=== PATIENT | female | born 1960 | race Caucasian/White ===

== ENCOUNTER → 2016-03-17 09:36 | Outpatient (CLI) | payer MEDICAID ==
[2015-10-20 06:17] VITALS: BMI 46.9
[~2016-03-17 09:36] MED LIST: HYDROCODONE-APA1 TAB PO; IBUPROFEN600 MG PO
[2016-03-18 07:28] LABS: IMMUNOGLOBULIN A 168 mg/dL (87-352); IMMUNOGLOBULIN G 1007 mg/dL (700-1600)
[2016-03-18 10:18] LABS: IMMUNOGLOBULIN E 795 IU/mL (0-100)
== END | disposition home or self-care (01) ==
LOC: D.RT 09:36
PROVIDERS: Internal Medicine Pulmonary Disease
DX: J44.9 Chronic obstructive pulmonary disease, unspecified (principal)

== ENCOUNTER → 2016-04-06 19:42 | Outpatient (CLI) | payer BC ==
[2015-10-20 06:17] VITALS: BMI 46.9
== END | disposition home or self-care (01) ==
LOC: D.SLEEP 19:42
DX: G47.33 Obstructive sleep apnea (adult) (pediatric) (principal)

== ENCOUNTER → 2016-05-18 19:34 | Outpatient (CLI) | payer MEDICAID ==
[2015-10-20 06:17] VITALS: BMI 46.9
== END | disposition home or self-care (01) ==
LOC: D.SLEEP 05-04 20:00
DX: G47.33 Obstructive sleep apnea (adult) (pediatric) (principal)

== ENCOUNTER → 2016-06-24 10:20 | Outpatient (CLI) | payer MEDICAID ==
[2015-10-20 06:17] VITALS: BMI 46.9
== END | disposition home or self-care (01) ==
LOC: D.CT 10:20
DX: J45.909 Unspecified asthma, uncomplicated (principal)

== ENCOUNTER → 2016-09-07 12:17 | Outpatient (CLI) | payer MEDICAID ==
[2015-10-20 06:17] VITALS: BMI 46.9
== END | disposition home or self-care (01) ==
LOC: D.MAMMO 09:00
DX: Z85.3 Personal history of malignant neoplasm of breast (principal); Z12.31 Encounter for screening mammogram for malignant neoplasm of breast

== ENCOUNTER → 2016-09-29 09:27 | Outpatient (CLI) | payer MEDICAID ==
[2015-10-20 06:17] VITALS: BMI 46.9
== END | disposition home or self-care (01) ==
LOC: D.ECHO 09:27
DX: I38 Endocarditis, valve unspecified (principal)

== ENCOUNTER 2016-11-17 05:20 | Day surgery (SDC) | payer MEDICAID ==
[2016-11-16 12:44] LABS: BASOPHILS 0.2 % (0-2); EOSINOPHILS 1.8 % (0-7); HEMATOCRIT 36.1 % (36.0-48.0); HEMOGLOBIN 11.7 g/dL (12-16); IMMATURE GRANULOCYTES 0.5 % (0-5); LYMPHOCYTES 22.7 % (15-50); MCH 26.3 pg (26.0-34.0); MCHC 32.4 g/dL (31.0-37.0); MCV 81.1 fL (80.0-100.0); MEAN PLATELET VOLUME 9.2 fL (7.4-10.4); MONOCYTES 3.5 % (2-11); NEUTROPHILS 71.3 % (40-80); PLATELET COUNT 323 10x3/uL (130-400); RBC 4.45 10x6/uL (4.00-5.40); RDW 16.8 % (11.5-14.5); WBC 8.5 10x3/uL (4.8-10.8)
[2016-11-16 13:02] LABS: APTT 35.1 SECONDS (22.8-39.4); INR 0.97 (0.85-1.17); PROTIME 12.8 SECONDS (11.6-15.0)
[2016-11-16 13:11] LABS: ANION GAP 12.9 mmol/L (8-16); CALCIUM 9.5 mg/dL (8.5-10.1); CREATININE - SERUM 0.9 mg/dL (0.6-1.3); POTASSIUM - SERUM 3.9 mmol/L (3.5-5.1)
[~2016-11-17] VITALS: Ht 154.9 cm; Wt 116.1 kg
--- NOTE | ~2016-11-17 | OP ---
PATIENT NAME: VANE GUTIERREZ MEDICAL RECORD: [id number] :58 LOCATION:D.OPS ADMISSION DATE: SURGEON: HIREN LUKE MD DATE OF OPERATION: 11/17/2016 PREOPERATIVE DIAGNOSES: 1. Right breast erythema. 2. History of invasive ductal carcinoma of the right breast, status post lumpectomy. 3. Chronic obstructive pulmonary disease. 4. Asthma. 5. Gastroesophageal reflux disease. 6. Hypertension. 7. Tobacco dependence syndrome. 8. Hyperlipidemia. 9. Obstructive sleep apnea. 10. Morbid obesity. POSTOPERATIVE DIAGNOSES: 1. Right breast erythema. 2. History of invasive ductal carcinoma of the right breast, status post lumpectomy. 3. Chronic obstructive pulmonary disease. 4. Asthma. 5. Gastroesophageal reflux disease. 6. Hypertension. 7. Tobacco dependence syndrome. 8. Hyperlipidemia. 9. Obstructive sleep apnea. 10. Morbid obesity. PROCEDURES: 1. Incision and debridement of right breast cyst (right upper outer quadrant). 2. Excisional skin biopsy of the right breast. SURGEON: Hiren Luke MD REPORT OF PROCEDURE: The patient's right breast was prepped and draped in sterile fashion. A skin incision was made at the nipple areolar complex edge at about the 9 o'clock position and a core of tissue was removed. This tissue was sent off for permanent specimen. Any bleeding from the source was treated with electrocautery. We then used ultrasound guidance to inspect the remainder of the breast and was able to find that patient had a large cystic cavity in the right upper outer quadrant at the site of the previous lumpectomy. A skin incision was made overlying this and we entered the pocket with some murky-appearing fluid, but no richard purulence. The fluid had no odor. The fluid was kind of thin, white color. The cultures were taken times 2. There was then a cystic core edge to this and this cystic tissue was removed until there was just a layer of normal fatty tissue appearing. The cystic tissue was sent off for permanent specimen. We then inspected the area and any bleeding was treated with electrocautery. We then irrigated out the wound thoroughly with normal saline. A 15-Scottish Ortiz drain was inserted into this space and sutured into place with a 2-0 Prolene. The subcutaneous tissues were all reapproximated with interrupted 3-0 Vicryl and the skin incisions were closed with subcutaneous 5-0 Monocryl. A total of 10 mL of 0.25% Marcaine was infused OPERATIVE REPORT [id number] VANE GUTIERREZ into the surrounding tissues and the wound was dressed appropriately. COMPLICATIONS: None. CONDITION: Stable. ANESTHESIA: General endotracheal and local. BLOOD LOSS: 30 mL. TRANSINT:[id number] Voice Confirmation ID: [id number] DOCUMENT ID: [id number] HIREN LUKE MD CC: DOMENICA GAMEZ DO [id number] DICTATION DATE: 11/17/16 1033 DWARF TREE GROWER: 11/17/16 1142 [facility] [address] [place] [address]
[~2016-11-17 05:20] MED LIST changes: +ADVAIR 250/501 DISK INH; +ANASTROZOLE1 MG PO; +FLUTICASONE PRO16 GM NASAL; +IPRAT-ALBUT 0.5-3 ML UPD; +LIPITOR20 MG PO; +NORCO 7.5/325 T1 TA1 PO; +OMEPRAZOLE40 MG PO; +SINGULAIR10 MG PO; +SPIRIVA18 MCG INH
[2016-11-17 08:10] VITALS: BP 126/67; Ht 154.9 cm; Wt 116.1 kg
[2016-11-17] MEDS ORDERED: NORCO 7.5/325 T1 TA1 PO (10:26)
== END 2016-11-17 12:25 | disposition home or self-care (01) ==
LOC: D.OPS 05:20
PROVIDERS: Surgery
DX: N61.1 Abscess of the breast and nipple (principal); C50.411 Malignant neoplasm of upper-outer quadrant of right female breast; J44.9 Chronic obstructive pulmonary disease, unspecified; K21.9 Gastro-esophageal reflux disease without esophagitis; I10 Essential (primary) hypertension; E78.5 Hyperlipidemia, unspecified; G47.33 Obstructive sleep apnea (adult) (pediatric); F17.200 Nicotine dependence, unspecified, uncomplicated; Z01.812 Encounter for preprocedural laboratory examination

== ENCOUNTER 2016-12-26 21:34 | Emergency (ER) | payer MEDICAID ==
[2016-11-17 08:10] VITALS: BMI 48.4
[2016-12-26 23:27] LABS: BASOPHILS 0.2 % (0-2); EOSINOPHILS 1.8 % (0-7); HEMATOCRIT 36.4 % (36.0-48.0); HEMOGLOBIN 11.7 g/dL (12-16); IMMATURE GRANULOCYTES 0.2 % (0-5); MCH 26.5 pg (26.0-34.0); MCHC 32.1 g/dL (31.0-37.0); MCV 82.5 fL (80.0-100.0); MEAN PLATELET VOLUME 9.4 fL (7.4-10.4); MONOCYTES 3.7 % (2-11); NEUTROPHILS 67.1 % (40-80); PLATELET COUNT 318 10x3/uL (130-400); RBC 4.41 10x6/uL (4.00-5.40); WBC 8.5 10x3/uL (4.8-10.8)
[2016-12-26 23:50] LABS: ALBUMIN 3.7 g/dL (3.4-5.0); BILIRUBIN - TOTAL 0.4 mg/dL (0.2-1.3); CALCIUM 9.6 mg/dL (8.5-10.1); CARBON DIOXIDE 28.7 mmol/L (21.0-32.0); CREATININE - SERUM 0.9 mg/dL (0.6-1.3); POTASSIUM - SERUM 3.7 mmol/L (3.5-5.1); PROTEIN - SERUM 8.1 g/dL (6.4-8.2)
== END 2016-12-27 00:32 | disposition home or self-care (01) ==
LOC: D.ER 21:34
PROVIDERS: Physician Assistant
DX: K59.00 Constipation, unspecified (principal); Z85.3 Personal history of malignant neoplasm of breast; J44.9 Chronic obstructive pulmonary disease, unspecified; K21.9 Gastro-esophageal reflux disease without esophagitis

== ENCOUNTER 2017-02-06 05:48 | Day surgery (SDC) | payer MEDICAID ==
[~2017-02-06] VITALS: Ht 152.4 cm; Wt 110.5 kg
[2017-02-06 06:23] VITALS: BP 133/71; Ht 152.4 cm; Wt 110.5 kg
[2017-02-06 06:56] LABS: HEMATOCRIT 35.2 % (36.0-48.0); HEMOGLOBIN 11.3 g/dL (12-16); MCH 25.9 pg (26.0-34.0); MCHC 32.1 g/dL (31.0-37.0); MCV 80.5 fL (80.0-100.0); MEAN PLATELET VOLUME 9.3 fL (7.4-10.4); RBC 4.37 10x6/uL (4.00-5.40); RDW 16.8 % (11.5-14.5); WBC 6.1 10x3/uL (4.8-10.8)
[2017-02-06 07:12] LABS: ANION GAP 13.5 mmol/L (8-16); CARBON DIOXIDE 28.4 mmol/L (21.0-32.0); CREATININE - SERUM 0.9 mg/dL (0.6-1.3); POTASSIUM - SERUM 3.9 mmol/L (3.5-5.1)
--- NOTE | 2017-02-06 08:45 | NUR ---
PT REC'D TO ROOM VIA STRETCHER. AWAKE, ALERT, ORIENTED.
--- NOTE | 2017-02-06 08:55 | NUR ---
FULL LIQ DIET PROVIDED AND TOLERATED.
--- NOTE | 2017-02-06 09:11 | NUR ---
IV D/C'D CATH INTACT.
--- NOTE | 2017-02-06 09:12 | NUR ---
PT UP TO BR TO VOID.
--- NOTE | 2017-02-06 09:25 | NUR ---
D/C INSTRUCTIONS EXPLAINED TO PT. VOICED UNDERSTANDING. COPIES OF ALL GIVEN. D/C'D HOME VIA W/C TO PRIVATE CAR.
--- NOTE | 2017-02-09 11:51 | OP ---
PATIENT NAME: VANE GUTIERREZ MEDICAL RECORD: [id number] :58 LOCATION:[facility] ADMISSION DATE: SURGEON: CHRISTOPHER VALIENTE DO DATE OF OPERATION: 02/06/2017 PROCEDURE: EGD with biopsies. INDICATIONS FOR PROCEDURE: Heartburn, nausea, gas, and bloating. SCOPE: Olympus video gastroscope. MEDICATIONS: Propofol 200 mg IV per anesthesia. ESTIMATED BLOOD LOSS: Minimal. COMPLICATIONS: None. FINDINGS: Informed consent was given. The patient was made comfortable with the above medication. After reaching an adequate level of sedation by slow IV push, the patient was placed on her left side. The endoscope was then advanced under direct visualization through the mouth to the second portion of the duodenum. The upper, middle, and lower thirds of the esophagus appeared normal. At the GE junction, there was mild evidence of reflux esophagitis. The endoscope was advanced beyond the GE junction into the stomach and retroflexed to view the cardia, where a small sliding hiatal hernia was present. The fundus, body of the stomach, antrum, and prepyloric region all displayed some edema, consistent with possible gastritis. Random biopsies were taken to submit for histology and to rule out H. pylori. The endoscope was advanced beyond the pylorus into the duodenum. The entire exam and duodenum appeared normal. The endoscope was withdrawn from the patient. The patient tolerated the procedure well and there were no complications. IMPRESSION: 1. LA class A reflux-induced esophagitis. 2. Small sliding hiatal hernia. 3. Edema and congestion of the stomach consistent with possible gastritis, biopsies pending. PLAN AND RECOMMENDATIONS: 1. Discharge home when recovery parameters are met. 2. GERD diet and reflux precautions. 3. Gastric emptying study regarding nausea, gas, and bloating. 4. Continue omeprazole 40 mg daily for symptoms. May reduce this to 20 mg daily as tolerated by symptomatology. 5. Consider surgical consultation if gastric emptying study is negative and the patient continues to experience severe regurgitation. 6. Also consider a barium esophagram to evaluate severity of reflux and regurgitation. TRANSINT:[id number] Voice Confirmation ID: [id number] DOCUMENT ID: [id number] OPERATIVE REPORT [id number] VANE GUTIERREZ CHRISTOPHER VALIENTE DO at 5425 CC: [id number] DICTATION DATE: 02/06/17 0834 AUDIO VISUAL SPECIALIST: 02/06/17 1212 [facility] 02/06/17 [facility] [address] [place] [address]
== END 2017-02-06 09:25 | disposition home or self-care (01) ==
LOC: D.OPS 05:48
PROVIDERS: Anesthesiology
DX: R12 Heartburn (principal); R11.0 Nausea; R14.3 Flatulence; K44.9 Diaphragmatic hernia without obstruction or gangrene; Z01.812 Encounter for preprocedural laboratory examination; J45.909 Unspecified asthma, uncomplicated; I10 Essential (primary) hypertension; E11.9 Type 2 diabetes mellitus without complications; G47.30 Sleep apnea, unspecified

== ENCOUNTER → 2017-02-16 08:41 | Outpatient (CLI) | payer MEDICAID ==
[2017-02-06 06:23] VITALS: BMI 47.5
== END | disposition home or self-care (01) ==
LOC: D.NM 08:41
DX: R11.0 Nausea (principal); R14.0 Abdominal distension (gaseous)

== ENCOUNTER → 2017-03-08 19:29 | Outpatient (CLI) | payer MEDICAID ==
[2017-02-06 06:23] VITALS: BMI 47.5
== END | disposition home or self-care (01) ==
LOC: D.LABREF 19:29
DX: N64.89 Other specified disorders of breast (principal); Z85.3 Personal history of malignant neoplasm of breast

== ENCOUNTER 2017-03-13 06:52 | Day surgery (SDC) | payer MEDICAID ==
[~2017-03-13] VITALS: Ht 154.9 cm; Wt 108.4 kg
--- NOTE | ~2017-03-13 | OP ---
PATIENT NAME: VANE GUTIERREZ MEDICAL RECORD: [id number] :58 LOCATION:DNickOPS ADMISSION DATE: SURGEON: CHRISTOPHER VALIENTE DO DATE OF OPERATION: 03/13/2017 PROCEDURE: Colonoscopy with hot forceps polypectomy. INDICATION FOR PROCEDURE Colorectal cancer screening. SCOPE: Olympus video pediatric colonoscope. MEDICATIONS: Propofol 400 mg IV per anesthesia. WITHDRAWAL TIME: 12 minutes. ESTIMATED BLOOD LOSS: Minimal. COMPLICATIONS: None. FINDINGS: Informed consent was given. The patient was made comfortable with the above medication. After reaching an adequate level of sedation by slow IV push, the patient was placed on her left side. A digital rectal examination was performed which revealed some large external hemorrhoids, which were not bleeding. The endoscope was then advanced under direct visualization through the rectum to the cecum with visualization of the appendiceal orifice and the ileocecal valve. The scope was slowly withdrawn and mucosa was carefully examined. There was evidence of mild diverticulosis involving sigmoid and distal descending colon. This consisted of a few small mouth diverticula without evidence of diverticulitis. There were 4 polyps visualized on today's examination. They were all in the descending colon. They were all benign appearing, sessile, and ranged in size from 3 mm to 5 mm in diameter. They were all removed in one piece using hot forceps. Retroflexion was performed in the rectum with visualization of grade III hemorrhoids with no active bleeding. The endoscope was then withdrawn from the patient. The patient tolerated the procedure well and there were no complications. IMPRESSION: 1. Four benign-appearing sessile polyps located in the descending colon, all removed using hot forceps. 2. Mild diverticulosis of distal descending and sigmoid colon. 3. Internal and external hemorrhoids without active bleeding. PLAN AND RECOMMENDATIONS: 1. Discharge home when recovery parameters are met. 2. High-fiber diet. 3. Supplement diet with Metamucil or other psyllium husk fiber two tablespoons daily to facilitate regular bowel movements. 4. Continue current medications. 5. Recall colonoscopy in 3 years for surveillance of personal history of polyps. TRANSINT:[id number] Voice Confirmation ID: [id number] DOCUMENT ID: [id number] OPERATIVE REPORT [id number] VANE GUTIERREZ CHRISTOPHER VALIENTE DO at 1616 CC: [id number] DICTATION DATE: 03/13/17 0944 SPINNER HYDRAULIC: 03/13/17 1413 [facility] 03/13/17 [place] [id number] [place] [address]
[2017-03-13 08:24] LABS: HEMATOCRIT 34.7 % (36.0-48.0); HEMOGLOBIN 11.1 g/dL (12-16); MCH 25.5 pg (26.0-34.0); MCV 79.8 fL (80.0-100.0); MEAN PLATELET VOLUME 9.3 fL (7.4-10.4); RBC 4.35 10x6/uL (4.00-5.40); RDW 16.7 % (11.5-14.5); WBC 6.7 10x3/uL (4.8-10.8)
[2017-03-13 08:27] VITALS: BP 135/62; Ht 154.9 cm; Wt 108.4 kg
[2017-03-13 08:32] LABS: CALC OSMOLALITY 278 mosm/kg (275-300); CALCIUM 9.6 mg/dL (8.5-10.1); CARBON DIOXIDE 30.2 mmol/L (21.0-32.0); CHLORIDE - SERUM 101 mmol/L (98-107); CREATININE - SERUM 0.8 mg/dL (0.6-1.3); GLUCOSE 109 mg/dL (74-106); POTASSIUM - SERUM 3.5 mmol/L (3.5-5.1); SODIUM 141 mmol/L (136-145); UREA NITROGEN 3 mg/dL (7-18); eGFR NON AFRICAN AMERICAN 78 mL/min (90-120)
== END 2017-03-13 10:35 | disposition home or self-care (01) ==
LOC: D.OPS 06:52
PROVIDERS: Anesthesiology
DX: K59.00 Constipation, unspecified (principal); R12 Heartburn; R14.3 Flatulence; R11.0 Nausea; K63.5 Polyp of colon; K64.4 Residual hemorrhoidal skin tags; K64.8 Other hemorrhoids; K57.30 Diverticulosis of large intestine without perforation or abscess without bleeding; Z01.812 Encounter for preprocedural laboratory examination; F17.200 Nicotine dependence, unspecified, uncomplicated; J45.909 Unspecified asthma, uncomplicated; E11.9 Type 2 diabetes mellitus without complications; J44.9 Chronic obstructive pulmonary disease, unspecified; G47.30 Sleep apnea, unspecified; K21.9 Gastro-esophageal reflux disease without esophagitis

== ENCOUNTER → 2017-04-12 12:47 | Outpatient (CLI) | payer MEDICAID ==
[2017-03-13 08:27] VITALS: BMI 45.1
== END | disposition home or self-care (01) ==
LOC: D.RT 12:47
DX: J44.9 Chronic obstructive pulmonary disease, unspecified (principal)

== ENCOUNTER 2017-08-14 11:18 | Outpatient (CLI) | payer MEDICAID ==
[~2017-08-14] VITALS: Ht 154.9 cm; Wt 104.5 kg
--- NOTE | ~2017-08-14 | HEMODYNAMI ---
PATIENT:VANE GUTIERREZ MEDICAL RECORD: [id number] : 58 LOCATION:[facility]ELIT[facility] ADMISSION DATE: 08/14/17 Generatedon:08/14/201713:52 Patient name: VANE GUTIERREZ Patient #: [id number] SSN: : 1960 Date of study: 08/14/2017 Page: Of Hemodynamic Procedure Report Patient Data Patient Demographics Procedure consent was obtained First Name: VANE Gender: Female Last Name: MATT : 1960 [facility] Initial: KELLY Age: 56 year(s) Patient #: [id number] Race: Unknown Additional ID: [id number] Contact details [address]: [address] [place] [address] ROAD State: [place] City: [facility] Zip code: [address] Past Medical History Allergies Allergen Reaction Date Comments Reported Demerol 08/14/2017 Morphine 08/14/2017 Other allergy 08/14/2017 Doxycycline, Meloxicam, Keflex, Tramadol Admission Admission Data Admission Date: 08/14/2017 Admission Time: 11:18 Procedure Procedure Types Cath Procedure Diagnostic Procedure LHC LHC w/Coronaries Sedation Charges Moderate Sedation up to 15 minutes Procedure Description Procedure Date Procedure Date: 08/14/2017 Procedure Start Time: 13:41 Procedure End Time: 13:52 Procedure Staff Name Function Roberto Moreno MD Performing Physician Vandana Dave RT Monitor Vicky Oliveira RT Scrub Jose Alfredo Easton RN Nurse Procedure Data Cath Procedure Fluoroscopy Diagnostic fluoroscopy Total fluoroscopy Time: 1.2 time: 1.2 min min Diagnostic fluoroscopy Total fluoroscopy dose: 595 dose: 595 mGy mGy Contrast Material Contrast Material Type Amount (ml) Isovue 370 56 Entry Location Entry Primary Successful Side Size Upsize Upsize Entry Closure Succes sful Closure Location (Fr) 1 (Fr) 2 (Fr) Remarks Device Remarks Femoral Right 5 Fr Exoseal artery Estimated blood loss: 5 ml Diagnostic catheters Device Type Used For End Catheter Placement MULTIPACK JL 4.0 5Fr Left Coronary catheter Angiography MULTIPACK 3DRC 5Fr Right Coronary catheter Angiography MULTIPACK Pigtail 5 Fr LV Angiography catheter Procedure Complications No complications Procedure Medications Medication Administration Route Dosage Oxygen etCO2 Nasal cannula 2 l/min Heparin Flush Bag added to field 2 bags (1000units/500ml NS) 0.9% NaCl I.V. 100 ml/hr Fentanyl I.V. 50 mcg Versed I.V. 1 mg Fentanyl I.V. 50 mcg Versed I.V. 1 mg Fentanyl I.V. 50 mcg Fentanyl I.V. 50 mcg Hemodynamics Rest Heart Rate: 77 (bpm) Pressure Samples Time Site Value (mmHg) Purpose Heart Use Rate(bpm) 13:47 LV 136/19,20 EDP 90 Gradients Valve Time Site Site Mean SEP/DFP Peak To Heart Use 1 2 (mmHg) (sec/min) Peak Rate (mmHg) (bpm) Aortic 13:48 LV AO 94 Snapshots Pre Cath Intra NCS Post Cath Vital Signs Time Heart Resp SPO2 etCO2 NIBP (mmHg) Rhythm Pain Sedation Rate (ipm) (%) (mmHg) Status Level (bpm) 13:25:22 81 16 96 0 136/64(106) NSR 0 (11) 10(A) , No pain 13:34:22 81 17 98 0 149/72(104) NSR 0 (11) 10(A) , No pain 13:39:13 83 16 100 10.5 135/87(105) NSR 0 (11) 9(A) , No pain 13:44:06 86 16 94 0 131/62(97) NSR 0 (11) 9(A) , No pain 13:48:59 96 18 95 10.5 122/67(84) NSR 0 (11) 9(A) , No pain Medications Time Medication Route Dose Verified Delivered Reason Notes Effe ctiveness by by 13:23:16 Oxygen etCO2 2 Roberto Veliz Per Nasal l/min St Josue Easton RN physician cannula 13:23:24 Heparin Flush added 2 Roberto Veliz used for Bag to bags St Josue Easton RN procedure (1000units/500ml field NS) 13:23:33 0.9% NaCl I.V. 100 Roberto Veliz Per ml/hr [facility] Josue Easton RN physician 13:30:40 Fentanyl I.V. 50 Roberto Veliz for mcg [facility] Josue Easton RN sedation 13:30:48 Versed I.V. 1 mg Roberto Veliz for [facility] Josue Easton RN sedation 13:34:34 Fentanyl I.V. 50 Roberto Veliz for [facility]ue Easton RN sedation 13:34:37 Versed I.V. 1 mg Roberto Veliz for [facility] Josue Easton RN sedation 13:44:56 Fentanyl I.V. 50 Roberto Veliz for [facility]ue Easton RN sedation 13:46:15 Fentanyl I.V. 50 Roberto Veliz for [facility]ue Easton RN sedation Procedure Log Time Note 13::28 Vicky Oliveira RT(R) sent for patient. Start room use. ::28 Time tracking: Regular hours (M-F 7:00 - 5:00) 13:07:32 Plan of Care:Hemodynamics will remain stable., Cardiac rhythm will remain stable., Comfort level will be maintained., Respiratory function will remain adequate., Patient/ family verbilizes understanding of procedure., Procedure tolerated without complication., Recovers from procedure without complications.. 13:23:16 Oxygen 2 l/min etCO2 Nasal cannula was administered by Jose Alfredo Easton RN; Per physician; 13:23:24 Heparin Flush Bag (1000units/500ml NS) 2 bags added to field was administered by Jose Alfredo Easton RN; used for procedure; 13:23:33 0.9% NaCl 100 ml/hr I.V. was administered by Jose Alfredo Easton RN; Per physician; 13:24:03 Patient received from Pre/Post Procedure Room to [facility] 1 Alert and oriented. Tansferred to table in Supine position. 13:24:04 Warm blankets applied, and zeeshan hugger turned on for patient comfort. 13:24:05 Correct patient and procedure confirmed by team. 13:24:06 Signed procedure consent form obtained from patient. 13:24:06 ECG and BP/O2 sat monitors applied to patient. 13:24:07 Vital chart was started 13:24:08 Full Disclosure recording started 13:24:10 Rhythm: sinus rhythm 13:27:26 H&P Date Dictated: 08/02/2017 Within 30 days and on chart., H&P Addendum completed by physician on day of procedure. (MUST COMPLETE FOR ALL OUTPATIENTS). 13:27:28 Pre-procedure instructions explained to patient. 13:27:28 Pre-op teaching completed and patient verbalized understanding. 13:27:30 Family in patients room. 13:27:32 Patient NPO since Midnight. 13:27:43 Patient allergic to Demerol 13:27:48 Patient allergic to Morphine 13:28:35 Patient allergic to Other allergyDoxycycline, Meloxicam, Keflex, Tramadol 13:28:37 Is the patient allergic to Iodine/contrast media? No. 13:28:39 Is patient on blood thinner?No 13:28:40 Patient diabetic? No. 13:28:43 Previous problem with sedation/anesthesia? No ? 13:28:44 Snore? Yes 13:28:45 Sleep apnea? Yes 13:28:46 Deviated septum? No 13:28:47 Opens mouth fully? Yes 13:28:47 Sticks out tongue? Yes 13:28:56 Airway obstruction? Yes COPD 13:29:09 Dentures? No . 13:29:12 Pre procedure: right dorsailis pedis pulse 2+ Normal; easily identifiable; not easily obliterated 13:29:14 Modified Oliver's test Ulnar > 7 seconds. 13:29:16 Patient pain scale 0/10 ?. 13:29:21 IV patent on arrival in left hand with 0.9% NaCl at [facility]. 13:29:23 Lab results completed and on chart. 13:29:35 Right groin area was prepped with chlora-prep and draped in sterile fashion 13:29:35 Alarms reviewed by R. N. 13:29:36 Sharps counted by scrub and verified by R.N. 13:29:39 Use device set Femoral Dx 13:29:39 ACIST Syringe (67435) opened to sterile field. 13:29:40 Bag Decanter (2002S) opened to sterile field. 13:29:41 Medline Cath Pack ([id number]) opened to sterile field. 13:29:41 DIAGNOSTIC WIRE .035 260cm J wire (514516) opened to sterile field. 13:29:45 ACIST Hand Control (79243) opened to sterile field. 13:29:45 ACIST Manifold (07405) opened to sterile field. 13:29:46 DIAGNOSTIC Multipack 5Fr catheter set (RR7102) opened to sterile field. 13:29:47 Tegaderm 4 x 4 (1626W) opened to sterile field. 13:29:47 PERCUTANEOUS ENTRY 19GA needle opened to sterile field. 13:29:48 SHEATH Prelude 5Fr 0.035 (COD-5A-64-035) opened to sterile field. 13:29:58 Final Timeout: patient, procedure, and site verified with staff and physician. All members of the team are in agreement. 13:29:59 Right groin site verified by team. 13:30:02 Physical assessment completed. ASA score P 2 - A patient with mild systemic disease as per Roberto Moreno MD. 13:30:05 Sedation plan: IV Moderate Sedation Medication:Versed, Fentanyl 13:30:40 Fentanyl 50 mcg I.V. was administered by Jose Alfredo Easton RN; for sedation; 13:30:48 Versed 1 mg I.V. was administered by Jose Alfredo Easton RN; for sedation; 13:33:10 Vital chart was stopped 13:33:11 Vital chart was started 13:34:34 Fentanyl 50 mcg I.V. was administered by Jose Alfredo Easton RN; for sedation; 13:34:37 Versed 1 mg I.V. was administered by Jose Alfredo Easton RN; for sedation; 13:36:30 Baseline sample Acquired. 13:40:56 Procedure started. 13:41:15 Local anesthetic to right femoral artery with Lidocaine 1% by Roberto Moreno MD.INITIAL ACCESS ONLY 13:42:11 A 5 Fr sheath was inserted into the Right Femoral artery 13:43:38 A MULTIPACK JL 4.0 5Fr catheter was advanced over the wire and used for Left Coronary Angiography. 13:44:53 Catheter removed. 13:44:56 Fentanyl 50 mcg I.V. was administered by Jose Alfredo Easton RN; for sedation; 13:45:01 A MULTIPACK 3DRC 5Fr catheter was advanced over the wire and used for Right Coronary Angiography. 13:46:05 Catheter removed. 13:46:15 Fentanyl 50 mcg I.V. was administered by Jose Alfredo Easton RN; for sedation; 13:46:23 A MULTIPACK Pigtail 5 Fr catheter was advanced over the wire and used for LV Angiography. 13:46:28 EXOSEAL 5Fr (EX500) opened to sterile field. 13:47:43 LV gram done using FOSTER 13:47:45 LV hemodynamics recorded. 13:47:49 EF : 50 % 13:47:52 Injector settings: Ml/sec: 10, Volume: 20, 13:48:26 Catheter removed. 13:48:36 Sheath removed intact; hemostasis achieved with Exoseal to the Right Femoral artery. 13:48:37 Procedure ended.(Physican Out) 13:48:41 Fluoroscopy time 01.20 minutes. 13:48:44 Fluoroscopy dose: 595 mGy 13:48:44 Flurop Dose total: 595 13:48:48 Contrast amount:Isovue 370 56ml. 13:48:49 Sharps counted by scrub and verified by R.N. 13:48:51 Insertion/operative site no bleeding no hematoma. 13:48:54 Post-op/insertion site Right Femoral artery dressed using a 4 x 4 and Tegaderm. 13:48:56 Post right femoral artery:stable, clean and dry 13:49:01 Post-procedure physical assessment completed. ASA score P 2 - A patient with mild systemic disease as per Roberto Moreno MD. 13:49:03 Post procedure rhythm: unchanged. 13:49:06 Estimated blood loss: 5 ml 13:49:08 Post procedure instruction explained to patient.Patient verbalizes understanding. 13:49:08 Patient needs reinforcement of post procedure teaching. 13:50:51 Procedure type changed to Cath procedure, Diagnostic procedure, LHC, LHC w/Coronaries, Sedation Charges, Moderate Sedation up to 15 minutes 13:50:57 Procedure Complication : No complications 13:51:01 See physician's report for complete and final results. 13:51:18 Procedure and supply charges have been captured, reviewed, submitted and are correct. 13:52:24 Report given to Pre/Post Procedure Room. 13:52:27 Patient transfered to Pre/Post Procedure Room with Stretcher. 13:52:36 Procedure ended. 13:52:36 Full Disclosure recording stopped 13:52:39 End room use (Document Last) 13:52:51 Vital chart was stopped Device Usage Item Name Manufacture Quantity Catalog Number Hospital Part Current M inimal Lot# / Charge Number Stock Stock Serial# Code ACIST Syringe Acist 1 20814 993807 890345 515709 2 0 (85562) [employer] Bag Decanter Microtek 1 934634 17381 352233 5 () Medical Inc. Medline Cath Cardinal 1 [id number] 406911 76644 608692 5 [facility] Pretty in my Pocket (PRIMP) ([id number]) DIAGNOSTIC WIRE [facility] 1 630597 277974 940554 555677 3 0 .035 260cm J wire (052078) ACIST Hand Acist 1 55935 705538 458062 374827 5 Control (79176) Medical Systems Inc ACIST Manifold Acist 1 11584 210805 586378 767086 5 (13061) [employer] Inc DIAGNOSTIC Cardinal 1 [id number] 052034 74022 881710 3 0 Multipack 5Fr Health catheter set (NM4045) Tegaderm 4 x 4 3M 1 1626W 728998 273390 532870 5 (1626W) PERCUTANEOUS Cook Medical 1 Q09374 141902 735151 5 ENTRY 19GA needle SHEATH Prelude Merit 1 LEC-9Q-87-035 722308 857476 869045 5 5Fr 0.035 Medical (HRI-4N-09-035) MULTIPACK JL Cardinal 1 371870 5 4.0 5Fr Health catheter MULTIPACK 3DRC Cardinal 1 889689 5 5Fr catheter Health MULTIPACK Cardinal 1 806837 5 Pigtail 5 Fr Health catheter EXOSEAL 5Fr Cardinal 1 EX500 066404 903664 171439 1 0 (EX500) Health Signature Audit [place] Stage Time Signature Unsigned Intra-Procedure 08/14/2017 Vandana 1:52:49 PM Counts RT(R) Signatures Monitor : Vandana Signature : Counts RT Date : Time : [address] [address]
--- NOTE | ~2017-08-14 | OP ---
PATIENT NAME: VANE GUTIERREZ MEDICAL RECORD: [id number] :58 LOCATION:D.CAT ADMISSION DATE: SURGEON: SYLWIA KHALIL MD DATE OF OPERATION: 08/14/2017 PROCEDURE: Left heart catheterization, selective coronary angiography, right femoral artery approach. CATHETERS: A 5-Frisian sheath, 5/4 left and right Feng, 5/4 pig. The procedure was well tolerated. The patient returned to the freire and sheath removed. ExoSeal device placed. FINDINGS: Left ventriculography in 30-degree FOSTER view: Normal wall motion, normal systolic function. CORONARY ANATOMY: LEFT MAIN: Left main is free of disease. LAD: Free of disease in the diagonal system. CIRCUMFLEX: Free of disease in the marginal system. RIGHT CORONARY ARTERY: Dominant artery, gives rise to PDA, free of disease. IMPRESSION: Normal systolic function, normal coronary anatomy: TRANSINT:[id number] Voice Confirmation ID: [id number] DOCUMENT ID: [id number] SYLWIA KHALIL MD at 0849 CC: [id number] DICTATION DATE: 08/14/17 1356 LIGHTHOUSE KEEPER: 08/14/17 1615 DEP CLI 08/14/17 [facility] [address] [place] [address]
[2017-08-14] MEDS ORDERED: BUSPAR5 MG PO (11:55)
[2017-08-14 12:05] VITALS: BP 150/64; Ht 154.9 cm; Wt 104.5 kg
[2017-08-14 12:21] LABS: BASOPHILS 0.2 % (0-2); EOSINOPHILS 2.9 % (0-7); HEMATOCRIT 35.5 % (36.0-48.0); HEMOGLOBIN 11.8 g/dL (12-16); IMMATURE GRANULOCYTES 0.1 % (0-5); LYMPHOCYTES 24.8 % (15-50); MCH 26.6 pg (26.0-34.0); MCHC 33.2 g/dL (31.0-37.0); MEAN PLATELET VOLUME 9.5 fL (7.4-10.4); MONOCYTES 3.4 % (2-11); NEUTROPHILS 68.6 % (40-80); PLATELET COUNT 272 10x3/uL (130-400); RBC 4.44 10x6/uL (4.00-5.40); WBC 8.4 10x3/uL (4.8-10.8)
[2017-08-14 12:30] LABS: ANION GAP 15.5 mmol/L (8-16); CALCIUM 9.5 mg/dL (8.5-10.1); CARBON DIOXIDE 26.3 mmol/L (21.0-32.0); CREATININE - SERUM 0.9 mg/dL (0.6-1.3); POTASSIUM - SERUM 3.8 mmol/L (3.5-5.1)
== END 2017-08-14 16:00 | disposition home or self-care (01) ==
LOC: D.CATH 11:18
PROVIDERS: Internal Medicine Interventional Cardiology
DX: R94.39 Abnormal result of other cardiovascular function study (principal); Z01.812 Encounter for preprocedural laboratory examination

== ENCOUNTER → 2017-09-01 10:23 | Outpatient (CLI) | payer MEDICAID ==
[2017-08-14 12:05] VITALS: BMI 43.5
[~2017-09-01 10:23] MED LIST changes: +BUSPAR5 MG PO
== END | disposition home or self-care (01) ==
LOC: D.RAD 10:23
DX: J98.11 Atelectasis (principal)

== ENCOUNTER 2017-09-08 18:00 | Outpatient (CLI) | payer MEDICAID ==
[2017-08-14 12:05] VITALS: BMI 43.5
== END 2017-09-08 23:59 | disposition home or self-care (01) ==
LOC: D.MAMMO 18:00
DX: Z12.31 Encounter for screening mammogram for malignant neoplasm of breast (principal)

== ENCOUNTER → 2018-04-11 16:24 | Outpatient (CLI) | payer MEDICARE ==
[2017-08-14 12:05] VITALS: BMI 43.5
== END | disposition home or self-care (01) ==
LOC: D.RAD 16:24
DX: J04.0 Acute laryngitis (principal)

== ENCOUNTER → 2018-06-05 12:20 | Outpatient (CLI) | payer MEDICARE | END | disposition home or self-care (01) | LOC: D.RT 12:20 | DX: J44.9 Chronic obstructive pulmonary disease, unspecified (principal) ==

== ENCOUNTER 2018-09-18 10:00 | Outpatient (CLI) | payer MEDICAID ==
[2017-08-14 12:05] VITALS: BMI 43.5
== END 2018-09-18 10:30 | disposition home or self-care (01) ==
LOC: D.MAMMO 10:00
PROVIDERS: ATTEND Specialist
DX: Z12.31 Encounter for screening mammogram for malignant neoplasm of breast (principal); Z85.3 Personal history of malignant neoplasm of breast

== ENCOUNTER → 2018-09-20 08:29 | Outpatient (CLI) | payer MEDICARE ==
[2017-08-14 12:05] VITALS: BMI 43.5
--- NOTE | 2018-10-01 13:55 | EC ---
PATIENT:VANE GUTIERREZ DATE OF SERVICE: 09/20/18 SEX: F MEDICAL RECORD: [id number] DATE OF : 58 LOCATION:[facility] AGE OF PATIENT: 57 ADMISSION DATE: 09/20/18 REFERRING PHYSICIAN: INTERPRETING PHYSICIAN: SYLWIA KHALIL MD ECHOCARDIOGRAM REPORT ECHO CHARGES 4 ECHO COMPLETE Date: 09/20/18 CLINICAL DIAGNOSIS: ASD/PAC'S H/O HTN ECHOCARDIOGRAPHIC MEASUREMENTS (adult normal given) AC root (d.<3.7cm) 3.0 cm LV Septum d (<1.2 cm> 1.2 cm Valve Excursion 1.3 cm LV Septum (systole) 1.9 cm Left Atria (s.<4.0cm> 4.8 cm LVPW d(<1.2cm) 1.0 cm RV (d.<2.3cm) 2.3 cm LVPW (sytole) 1.5 cm LV diastole(<5.6CM) 5.1 cm MV E-F(>70mm/sec) cm LV systole 3.2 cm LVOT Diameter 1.6 cm MV exc.(>10mm) cm Est.ejection fraction (50-75%) % DOPPLER: LVIT cm/sec A 126 cm/sec E 103 cm/sec LA cm/sec RVSP 23.3 mmHg LVOT 85.0 cm/sec AOP1/2T m/s Asc. Ao 192 cm/sec RVOT 74.0 cm/sec RA cm/sec PA 158 cm/sec AV Gradient Peak 15.0 mmHg AV Mean 7.8 mmHg AV Area 1.0 cm MV Gradient Peak 5.7 mmHg MV Mean 2.1 mmHg MV Area cm COMMENTS: OP - HC Polishing Pad Mounter: 1 RYAN MAGI Salesperson [employer] Glassware: 3 Dr. Devries TAPE# PACS Pericardial Effusion N DATE OF SERVICE: Adequate 2D, color flow, spectral Doppler and M-Mode. No LVH. LV internal dimensions are normal. Wall motion is normal. EF is greater than or equal to 55%. Aortic valve is tricuspid. No evidence of stenosis by Doppler interrogation. Left atrium is dilated at 4.8 cm. Mitral valve shows no prolapse. Trace MR. Right-sided chambers are grossly normal. Trace TR. Multiple Doppler and color flow passes were made through the aortic septum given a history of ASD in the past. If any pin hole trivial ASD, ECHOCARDIOGRAM REPORT [id number] VANE GUTIERREZ although on the current views I am not sure this is just not color flow aliasing, however, had no significant anginal abnormalities noted. TRANSINT:[id number] Voice Confirmation ID: [id number] DOCUMENT ID: [id number] SYLWIA KHALIL MD at 1355 CC: [id number] DICTATION DATE: 09/22/18 1138 LOW ALTITUDE [employer] DEF[employer] GUNNER: 09/22/18 2359 DEP CLI 09/20/18 [facility] [address] [place] [address]
== END | disposition home or self-care (01) ==
LOC: D.HCCARDIO 08:29
PROVIDERS: ATTEND Internal Medicine Interventional Cardiology
DX: I25.10 Atherosclerotic heart disease of native coronary artery without angina pectoris (principal); I10 Essential (primary) hypertension; I49.1 Atrial premature depolarization

== ENCOUNTER → 2018-10-30 13:18 | Outpatient (CLI) | payer MEDICARE ==
[2017-08-14 12:05] VITALS: BMI 43.5
== END | disposition home or self-care (01) ==
LOC: D.CT 13:18
PROVIDERS: ATTEND Legal Medicine
DX: C50.411 Malignant neoplasm of upper-outer quadrant of right female breast (principal)

== ENCOUNTER → 2018-12-20 08:41 | Outpatient (CLI) | payer MEDICARE ==
[2017-08-14 12:05] VITALS: BMI 43.5
[~2018-12-20 08:41] MED LIST changes: +CYCLOBENZAPRINE10 MG PO; +DICLOFENAC SODI50 MG PO
== END | disposition home or self-care (01) ==
LOC: D.RAD 08:41
PROVIDERS: ATTEND Legal Medicine
DX: R13.10 Dysphagia, unspecified (principal)

== ENCOUNTER 2019-01-04 19:12 | Emergency (ER) | payer MEDICARE ==
[~2019-01-04] VITALS: Ht 154.9 cm; Wt 106.4 kg
[~2019-01-04 19:12] MED LIST changes: -CYCLOBENZAPRINE10 MG PO; -DICLOFENAC SODI50 MG PO
[2019-01-04 19:41] VITALS: Ht 154.9 cm; Wt 106.4 kg
[2019-01-04] MEDS ORDERED: DICLOFENAC SODI50 MG PO (20:24)
[2019-01-04] MEDS ORDERED: CYCLOBENZAPRINE10 MG PO (20:24)
[2019-01-04 21:06] VITALS: BP 136/81
== END 2019-01-04 21:07 | disposition home or self-care (01) ==
LOC: D.ER 19:12
DX: S39.012A Strain of muscle, fascia and tendon of lower back, initial encounter (principal); X50.9XXA Other and unspecified overexertion or strenuous movements or postures, initial encounter; F32.9 Major depressive disorder, single episode, unspecified; J44.9 Chronic obstructive pulmonary disease, unspecified; F17.210 Nicotine dependence, cigarettes, uncomplicated

== ENCOUNTER → 2019-09-02 09:42 | Outpatient (CLI) | payer MEDICARE ==
[2019-01-04 19:41] VITALS: BMI 44.3
[~2019-09-02 09:42] MED LIST changes: +CYCLOBENZAPRINE10 MG PO; +DICLOFENAC SODI50 MG PO
== END | disposition home or self-care (01) ==
LOC: D.LAB 09:42
PROVIDERS: ATTEND Family Medicine
DX: Z11.59 Encounter for screening for other viral diseases (principal)

== ENCOUNTER → 2019-09-05 12:10 | Outpatient (CLI) | payer MEDICARE ==
[2019-01-04 19:41] VITALS: BMI 44.3
== END | disposition home or self-care (01) ==
LOC: D.RT 12:10
PROVIDERS: ATTEND Internal Medicine Pulmonary Disease
DX: J44.9 Chronic obstructive pulmonary disease, unspecified (principal); Z11.59 Encounter for screening for other viral diseases

== ENCOUNTER → 2019-09-23 11:00 | Outpatient (CLI) | payer MEDICARE ==
[2019-01-04 19:41] VITALS: BMI 44.3
== END | disposition home or self-care (01) ==
LOC: D.MAMMO 11:00
PROVIDERS: ATTEND Specialist
DX: Z12.31 Encounter for screening mammogram for malignant neoplasm of breast (principal)

== ENCOUNTER → 2019-10-03 13:41 | Outpatient (CLI) | payer MEDICARE ==
[2019-01-04 19:41] VITALS: BMI 44.3
--- NOTE | 2019-10-07 09:51 | EC ---
PATIENT:VANE GUTIERREZ DATE OF SERVICE: 10/03/19 SEX: F MEDICAL RECORD: [id number] DATE OF : 58 LOCATION:D[facility] AGE OF PATIENT: 58 ADMISSION DATE: 10/03/19 REFERRING PHYSICIAN: INTERPRETING PHYSICIAN: SYLWIA KHALIL MD ECHOCARDIOGRAM REPORT ECHO CHARGES 4 ECHO COMPLETE Date: 10/03/19 CLINICAL DIAGNOSIS: HTN/ASSESS TINY SHUNT ASD, HX OF PALPITATIONS ECHOCARDIOGRAPHIC MEASUREMENTS (adult normal given) AC root (d.<3.7cm) 3.9 cm LV Septum d (<1.2 cm> 1.5 cm Valve Excursion 1.3 cm LV Septum (systole) 2.2 cm Left Atria (s.<4.0cm> 3.7 cm LVPW d(<1.2cm) 1.6 cm RV (d.<2.3cm) 3.4 cm LVPW (sytole) 1.8 cm LV diastole(<5.6CM) 4.2 cm MV E-F(>70mm/sec) cm LV systole 2.8 cm LVOT Diameter 1.6 cm MV exc.(>10mm) 1.2 cm Est.ejection fraction (50-75%) % DOPPLER: LVIT cm/sec A 121.0cm/sec E 130.0 cm/sec LA cm/sec RVSP 25 mmHg LVOT 134 cm/sec AOP1/2T m/s Asc. Ao 235 cm/sec RVOT 101 cm/sec RA cm/sec PA 172 cm/sec AV Gradient Peak 22.06mmHg AV Mean 12.15mmHg AV Area 1.2 cm MV Gradient Peak 8.34 mmHg MV Mean 3.57 mmHg MV Area cm COMMENTS: Bmet: 2 RADHA BARKLEY Plant Care Worker: 3 Dr. Devries TAPE# PACS Pericardial Effusion N DATE OF SERVICE: Adequate 2D, color-flow imaging, spectral Doppler, and M-Mode. Mild LVH. LV internal dimensions are normal. Wall motion is normal. EF is greater than or equal to 55%. Aortic valve is mildly calcified with mild restriction of leaflet motion. Peak gradient of 22 mmHg putting this in mild range. Left atrium is normal. Mitral valve shows no prolapse. Trace MR. Right-sided chambers are grossly normal. Trace TR. ECHOCARDIOGRAM REPORT [id number] VANE GUTIERREZ TRANSINT:[id number] Voice Confirmation ID: [id number] DOCUMENT ID: [id number] SYLWIA KHALIL MD at 0951 CC: [id number] DICTATION DATE: 10/04/19 1045 REAR ADMIRAL: 10/04/19 2116 DEP CLI 10/03/19 [place] [id number] [place] [id number]
--- NOTE | 2019-10-07 09:51 | EC ---
PATIENT:VANE GUTIERREZ DATE OF SERVICE: 10/03/19 SEX: F MEDICAL RECORD: [id number] DATE OF : 58 LOCATION:D[facility] AGE OF PATIENT: 58 ADMISSION DATE: 10/03/19 REFERRING PHYSICIAN: INTERPRETING PHYSICIAN: SYLWIA KHALIL MD ECHOCARDIOGRAM REPORT ECHO CHARGES 4 ECHO COMPLETE Date: 10/03/19 CLINICAL DIAGNOSIS: HTN/ASSESS TINY SHUNT ASD, HX OF PALPITATIONS ECHOCARDIOGRAPHIC MEASUREMENTS (adult normal given) AC root (d.<3.7cm) 3.9 cm LV Septum d (<1.2 cm> 1.5 cm Valve Excursion 1.3 cm LV Septum (systole) 2.2 cm Left Atria (s.<4.0cm> 3.7 cm LVPW d(<1.2cm) 1.6 cm RV (d.<2.3cm) 3.4 cm LVPW (sytole) 1.8 cm LV diastole(<5.6CM) 4.2 cm MV E-F(>70mm/sec) cm LV systole 2.8 cm LVOT Diameter 1.6 cm MV exc.(>10mm) 1.2 cm Est.ejection fraction (50-75%) % DOPPLER: LVIT cm/sec A 121.0cm/sec E 130.0 cm/sec LA cm/sec RVSP 25 mmHg LVOT 134 cm/sec AOP1/2T m/s Asc. Ao 235 cm/sec RVOT 101 cm/sec RA cm/sec PA 172 cm/sec AV Gradient Peak 22.06mmHg AV Mean 12.15mmHg AV Area 1.2 cm MV Gradient Peak 8.34 mmHg MV Mean 3.57 mmHg MV Area cm COMMENTS: I&C Tech: 2 RADHA BARKLEY Forge Operator Helper: 3 Dr. Devries TAPE# PACS Pericardial Effusion N DATE OF SERVICE: Adequate 2D, color flow imaging, spectral Doppler, and M-Mode. LVH is present. LV internal dimension is normal. Wall motion is normal. EF is greater than or equal to 55%. Aortic valve is mildly calcified with mild restriction of leaflet motion. Peak gradient 22 mmHg putting this in mild range. Left atrium is normal. Mitral valve shows no prolapse. Trace MR. Right-sided chambers are grossly normal. Trace TR. ECHOCARDIOGRAM REPORT [id number] VANE GUTIERREZ TRANSINT:[id number] Voice Confirmation ID: [id number] DOCUMENT ID: [id number] SYLWIA KHALIL MD at 0951 CC: [id number] DICTATION DATE: 10/04/19 1039 GENERAL INTERNAL MEDICINE DOCTOR: 10/04/19 2113 DEP CLI 10/03/19 [place] [id number] [place] [id number]
== END | disposition home or self-care (01) ==
LOC: D.HCCECHO 13:41
PROVIDERS: ATTEND Internal Medicine Interventional Cardiology
DX: I10 Essential (primary) hypertension (principal)